=== PATIENT | female | born 1970 | race Caucasian/White ===

== ENCOUNTER → 2016-09-25 | Outpatient (CLI) | payer OTHER ==
--- NOTE | 2016-09-25 13:48 | MAMMOGRAPHY REPORT ---
THIS REPORT HAS BEEN AMENDED. ULTRASOUND OF BOTH BREASTS: 09/25/2016 CLINICAL HISTORY: 46-year-old woman called back from screening at an outside institution for a 16 mm possible oval mass in the lateral posterior left breast, best seen on the exaggerated lateral CC view , 8 cm from the nipple, and a possible 11 mm mass in the 1:00 right breast, 3 cm from the nipple. The reconstructed C-view images are available but the tomosynthesis images are not currently availabl e for review. COMPARISON: Outside mammograms dated 09/08/2016, 05/10/2013, 04/11/2011. FINDINGS: Real-time high-resolution ultrasound was performed in the right breast 12:00 through 2:00 axes and left lateral breast to assess for the findings described in the outside mammography report. Several anechoic simple cysts are seen in the visualized right breast. In particular, there is a lo bulated anechoic benign stable cyst in the 11:00 right breast, 1 cm from the nipple, measuring 8.2 x 4.4 x 7.4 mm. Another lobulated anechoic cyst in the 12:00 right breast, 3 cm from the nipple, measu res 5.7 x 3.9 x 5.1 mm. There is an oval circumscribed anechoic cyst with posterior acoustic enhance ment in the 12:30 right breast, 2 cm from the nipple, measuring 7.4 x 8.7 x 12.0 mm. This likely cor relates with the mammographic mass as described on the screening exam. Another smaller lobulated ane choic cyst is seen in the adjacent 12:30 right breast, 2 cm from the nipple, measuring 5.5 x 6.5 x 3. 7 mm. These findings are compatible with fibrocystic changes. Targeted ultrasound performed in the left lateral breast demonstrates an oval parallel circumscribed anechoic benign simple cyst in the 3:00 axis, 4 cm from the nipple, measuring approximately 6.5 x 3.6 x 11.5 mm. This may correlate with the larger oval cyst seen on the exaggerated lateral CC view. A few other scattered benign simple cysts are seen, particularly in the 2:00 left breast, 5 cm from th e nipple, measuring 3.8 mm. No suspicious solid mass is seen throughout the remainder of the visuali zed lateral left breast. IMPRESSION: ACR BI-RADS CATEGORY 0: INCOMPLETE EVALUATION: NEED ADDITIONAL IMAGING EVALUATION There are scattered cysts in both breasts, compatible with benign fibrocystic changes. The largest, 12 mm simple cyst in the 12:30 right breast, 2 cm from the nipple is thought to correlate with the ma mmographic finding in the right breast, and the largest cyst measuring 11.5 mm in the 3:00 left breas t is thought to correlate with the left breast finding seen on the exaggerated lateral CC view. I will currently request the outside tomosynthesis images to review the entire exam and as long as th ere is no other significant change or other findings I identify myself, would recommend routine mammo graphy in one year (including tomosynthesis images). We also discussed the possibility of whole sendy st ultrasound for additional stricture screening, given the family history of breast cancer and dense breasts. Gabrielle Wallace M.D. ay/:09/25/2016 12:39:33 Punch Molder: Dr. Gabrielle Wallace, [facility] letter sent: Need Priors 0 BI-RADS Code: ACR BI-RADS Category 0: Incomplete Evaluation: Need Additional Imaging Evaluation AMENDMENT: 10/07/2016 Gabrielle Wallace M.D. After additional requests for the tomosynthesis images from the screening mammogram dated 09/08/2016, the imaging facility reported they had no way of transferring the tomosynthesis images and therefore they are unavailable for my own review. I do not see any other suspicious abnormality on the availa ble reconstructed C-view images, but will have to rely on the outside interpretation for the tomosynt hesis portion of the screening mammogram. Therefore, since the sonographic findings represented ebenezer gn cysts, would continue with routine mammography in August of 2017. Given the dense breasts, would al so consider additional screening with whole breast ultrasound. Amended BI-RADS: ACR BI-RADS Category 2: Benign letter sent: Normal 03/24
== END | disposition home or self-care (01) ==
LOC: C.MAMM 11:01
PROVIDERS: ATTEND Specialist
DX: N60.01 Solitary cyst of right breast (principal); N60.02 Solitary cyst of left breast